=== PATIENT | female | born 1960 ===

== ENCOUNTER 2018-10-20 11:17 | Day surgery (SDC) | payer OTHER ==
[2018-10-20] MEDS ORDERED: acetaZOLAMIDE TAB* 250 MG ONE (11:59)
[2018-10-20] MEDS ORDERED: Cyclopentolate 1% OPTH.SOL* 2 ML BTL ONE (11:59)
[2018-10-20] MEDS ORDERED: Povidone Iodine 5% OPTH* 30 ML BTL ONE (12:00)
[2018-10-20] MEDS ORDERED: Tropicamide 1% OPTH.SOL* BTL ONE (12:00)
[2018-10-20] MEDS ORDERED: Phenylephrine OPHTH SOL 2.5%* 2 ML ONE (12:00)
[2018-10-20] MEDS ORDERED: Tetracaine 0.5% OPTH.SOL 4 ML* 1 DROP BTL ONE (12:00)
[2018-10-20] MEDS ORDERED: Lidocaine 1%* 5 ML VIAL ONE (12:00)
[2018-10-20] MEDS ORDERED: Neomycin/Polymy/Dex OPHTH.OIN* 3.5 GM ONE (12:00)
[2018-10-20] MEDS ORDERED: Ketorolac 0.5% OPHTH (NF) 0.5 % 5 ML BTL ONE (12:00)
[2018-10-20] MEDS ORDERED: Midazolam* 1 MG/ML 2 ML VIAL (2 MG) ONE ×2 (13:45→13:48)
[2018-10-20 14:21] VITALS: BP 141/62
--- NOTE | 2018-10-21 02:36 | OP ---
\DATE OF OPERATION: 10/20/18 - OR [facility] DATE OF : 62 SURGEON: Jorge Sandy MD. ANESTHESIA: Monitored anesthesia care. PREOPERATIVE DIAGNOSIS: Cataract, left eye. POSTOPERATIVE DIAGNOSIS: Cataract, left eye. OPERATIVE PROCEDURE: Extracapsular cataract extraction of the left eye with intraocular lens implant. ANESTHESIA: Monitored anesthesia care. IMPLANT: SN60WF 21.0 diopter lens to the left eye. COMPLICATIONS: None. DESCRIPTION OF PROCEDURE: The patient was given phenylephrine 2.5% and cyclopentolate 1% eye drops to the operative eye in the preoperative area. The patient was taken to the operating room, where a time-out was taken to identify the correct patient, site, and side of surgery. The patient's left eye was prepped and draped in the usual sterile fashion with 5% Betadine. A second time -out was taken to verify the correct patient, side, and site of surgery, as well as the correct lens implant. A lid speculum was placed to the left eye. A 1 mm paracentesis blade was used to make a clear corneal incision. Preservative -free 1% lidocaine was injected into the anterior chamber. DisCoVisc was then injected into the anterior chamber. A 2.75 mm keratome blade was used to make a triplanar incision. A cystotome initiated a capsulorrhexis, which was completed with Utrata forceps in a continuous and curvilinear manner. Hydrodissection of the lens was performed with BSS on a cannula. The lens could be spun in a capsular bag. The phacoemulsification handpiece was used with a [id number] technique to remove the nucleus. The I/A handpiece then removed the residual cortical lens material. DisCoVisc was injected to inflate the capsular bag. The planned SN60WF 21.0 Diopter lens was injected into the capsular bag. The residual DisCoVisc was removed from the eye with the I/A handpiece. The corneal incisions were hydrated and no leaks occurred at physiologic pressure around 20 mmHg per palpation. The lid speculum was removed and drapes were removed. Maxitrol ointment was placed to the surface of the operative eye. An adhesive patch and shield was then placed on the operative eye. The patient was taken to the postoperative area in stable condition. [id number]/[facility] #: [id number] JOHN
== END 2018-10-20 14:31 | disposition home or self-care (01) ==
LOC: OREAST 11:17
PROVIDERS: ATTEND Student in an Organized Health Care Education/Training Program
DX: H25.12 Age-related nuclear cataract, left eye (principal); H25.013 Cortical age-related cataract, bilateral; H02.401 Unspecified ptosis of right eyelid; E78.1 Pure hyperglyceridemia; E88.9 Metabolic disorder, unspecified; R01.1 Cardiac murmur, unspecified; I10 Essential (primary) hypertension; G47.33 Obstructive sleep apnea (adult) (pediatric); E78.5 Hyperlipidemia, unspecified; Z91.040 Latex allergy status; Z88.1 Allergy status to other antibiotic agents; Z96.1 Presence of intraocular lens
CPT/HCPCS: A9270-GY; J2250; V2632

== ENCOUNTER 2019-01-12 07:44 | Observation (INO) | payer OTHER ==
[2019-01-12 08:07] LABS: ABS Eosinophils 0.1 10^3/ul (0-0.6); ABS Lymphocytes 2.6 10^3/ul (1.0-4.8); ABS Monocytes 0.5 10^3/ul (0-0.8); ABS Neutrophils 3.6 10^3/ul (1.5-7.7); Eosinophil % 1.5 %; Hematocrit 39 % (35-47); Hemoglobin 13.7 g/dL (12.0-16.0); Lymphocyte % 38.5 %; Mean Corpuscular HGB Conc 35 g/dL (31-36); Mean Corpuscular Hemoglobin 30 pg (27-31); Mean Corpuscular Volume 86 fL (80-97); Mean Platelet Volume 8.7 fL (7.4-10.4); Platelet Count 283 10^3/uL (150-450); Red Blood Count 4.59 10^6 /uL (3.70-4.87); Red Cell Distribution Width 13 % (10-15); White Blood Count 6.9 10^3/uL (3.5-10.8)
[2019-01-12 08:24] LABS: Albumin 4.4 g/dL (3.2-5.2); Albumin/Globulin Ratio 1.5 (1-3); BUN/Creatinine Ratio 21.8 (8-20); Calcium 9.6 mg/dL (8.6-10.3); EGFR African American 137.9 (>60); EGFR Non-African American 113.9 (>60); Globulin 2.9 g/dL (2-4); Total Bilirubin 0.3 mg/dL (0.2-1.0); Total Protein 7.3 g/dL (6.4-8.9)
[2019-01-12] MEDS ORDERED: Aspirin 81 mg CHEW TAB* 81 MG TAB.CHEW PO ONE (08:33)
--- NOTE | 2019-01-12 08:36 | ED ---
Complex/Multi-Sys Presentation - HPI Summary HPI Summary: This patient is a 58 year old F presenting to [facility] accompanied by with a chief complaint of intermittent jaw pain and burning chest pain since 0630 on 01/12/19. Patient reports frequent burping, nausea when jaw pain is severe. Pt denies any fever, chills, erythema of eyes, sore throat, SOB, cough, abdominal pain, vomiting, dysuria, hematuria, myalgia, edema, rash, dizziness, pain or swelling in legs, back pain, tingling numbness down arms, issues with exertion. Per triage, the patient rates the pain 4/10 in severity. Pt has a family history of heart issues. Pt takes Lisinopril, Gemfibrozil and Metformin. Pt did not take aspirin today. Home Medications Medication Instructions Recorded Confirmed Type Aspirin [Aspir-81] 81 mg PO EVERY OTHER DAY 08/01/12 01/12/19 History Melatonin 3 mg PO BEDTIME 08/01/12 01/12/19 History Calcium Carbonate/Vitamin D3 1 tab PO QPM 10/01/18 01/12/19 History [Calcium 600 + Vit D Tablet] Gemfibrozil 600 mg pe PO QPM 10/01/18 01/12/19 History Lisinopril 5 mg PO QPM 10/01/18 01/12/19 History Metformin HCl [Metformin HCl ER] 2,000 mg PO QPM 10/01/18 01/12/19 History Onley-3S/Dha/Epa/Fish Oil [Fish 1 tab PO BEDTIME 10/01/18 01/12/19 History Oil 1,200 mg Softgel] - History Of Current Complaint Chief Complaint: EDChestPainROMI Time Seen by Provider: 01/12/19 08:01 Hx Obtained From: Patient Onset/Duration: Lasting Hours, Resolved Timing: Intermittent, Lasting:, Hours Severity Currently: None Severity Initially: Moderate Location: Pain At: - jaw Associated Signs And Symptoms: Positive: Chest Pain, Nausea, Other - pos - jaw pain, burping; neg - chills, erythema of eyes, sore throat, hematuria, myalgia, rash, dizziness, back pain, tingling/numbness down arms, issues with exertion. Negative: SOB, Cough, Edema, Vomiting, Abdominal Pain, Dysuria, Fever - Allergies/Home Medications Allergies/Adverse Reactions: Allergies Allergy/AdvReac Type Severity Reaction Status Date / Time latex Allergy Severe Cellulitis Verified 01/12/19 08:05 michelle Allergy Severe Blisters Verified 01/12/19 08:05 shellfish derived Allergy Severe Difficulty Verified 01/12/19 08:05 Breathing/Wheezing bacitracin Allergy Intermediate cellulitis Verified 01/12/19 08:05 [From Triple Antibiotic] neomycin Allergy Intermediate cellulitis Verified 01/12/19 08:05 [From Triple Antibiotic] polymyxin B Allergy Intermediate cellulitis Verified 01/12/19 08:05 [From Triple Antibiotic] PMH/Surg Hx/FS Hx/Imm Hx Endocrine/Hematology History: Reports: Hx Diabetes - on metformin-metabolic syndrome Cardiovascular History: Reports: Hx Hypercholesterolemia, Hx Hypertension - on lisinopril Denies: Other Cardiovascular Problems/Disorders Respiratory History: Reports: Hx Sleep Apnea Denies: Other Respiratory Problems/Disorders GI History: Reports: Hx Irritable Bowel - 25 years ago, and then again 08/19 Denies: Other GI Disorders History: Reports: Other Problems/Disorders - UTI when 27 years ago Sensory History: Reports: Hx Cataracts - Bilateral, Hx Contacts or Glasses - one contact in right eye-hasn't worn in 2 weeks Denies: Hx Glaucoma, Hx Hearing Aid Opthamlomology History: Reports: Hx Cataracts - Bilateral, Hx Contacts or Glasses - one contact in right eye-hasn't worn in 2 weeks Denies: Hx Glaucoma Neurological History: Reports: Hx Migraine - visual migraines-without headache Denies: Other Neuro Impairments/Disorders - Surgical History Surgery Procedure, Year, and Place: Appendectomy 1975 Hx Anesthesia Reactions: No Infectious Disease History: No Infectious Disease History: Denies: Traveled Outside the [place] in Last 30 Days - Family History Known Family History: Positive: Other - pos - heart issues - Social History Lives: With Family Alcohol Use: None Hx Substance Use: No Substance Use Type: Reports: None Hx Tobacco Use: No Smoking Status (MU): Never Smoked Tobacco Review of Systems Negative: Fever, Chills Negative: Erythema Negative: Sore Throat Positive: Chest Pain Negative: Shortness Of Breath, Cough Positive: Nausea. Negative: Abdominal Pain, Vomiting Negative: dysuria, hematuria Positive: Other - pos - jaw pain. Negative: Myalgia Negative: Rash All Other Systems Reviewed And Are Negative: Yes Physical Exam - Summary Physical Exam Summary: Constitutional: Well-developed, Well-nourished, Alert. (-) Distressed Skin: Warm, Dry HENT: Normocephalic; Atraumatic Eyes: Conjunctiva normal Neck: Musculoskeletal ROM normal neck. (-) JVD, (-) Stridor, (-) Tracheal deviation Cardio: Rhythm regular, rate normal, Heart sounds normal; Intact distal pulses; The pedal pulses are 2+ and symmetric. Radial pulses are 2+ and symmetric. (-) Murmur Pulmonary/Chest wall: Effort normal. (-) Respiratory distress, (-) Wheezes, (-) Rales Abd: Soft, (-) tenderness, (-) Distension, (-) Guarding, (-) Rebound Musculoskeletal: (-) Edema Lymph: (-) Cervical adenopathy Neuro: Alert, Oriented x3 Psych: Mood and affect Normal Triage Information Reviewed: Yes Vital Signs On Initial Exam: Initial Vitals Temp Pulse Resp BP Pulse Ox 96.8 F 64 18 180/80 100 01/12/19 07:45 01/12/19 07:45 01/12/19 07:45 01/12/19 07:45 01/12/19 07:45 Vital Signs Reviewed: Yes Diagnostics - Vital Signs Vital Signs Temp Pulse Resp BP Pulse Ox 01/12/19 07:56 63 18 176/82 100 01/12/19 07:45 96.8 F 64 18 180/80 100 - Laboratory Lab Results: Lab Results 01/12/19 01/12/19 Range/Units 07:59 07:59 WBC 6.9 (3.5-10.8) 10^3/uL RBC 4.59 (3.70-4.87) 10^6 /uL Hgb 13.7 (12.0-16.0) g/dL Hct 39 (35-47) % MCV 86 (80-97) fL MCH 30 (27-31) pg MCHC 35 (31-36) g/dL RDW 13 (10-15) % Plt Count 283 (150-450) 10^3/uL MPV 8.7 (7.4-10.4) fL Neut % (Auto) 52.5 % Lymph % (Auto) 38.5 % [place] % (Auto) 6.9 % Eos % (Auto) 1.5 % Baso % (Auto) 0.6 % Absolute Neuts (auto) 3.6 (1.5-7.7) 10^3/ul Absolute Lymphs (auto) 2.6 (1.0-4.8) 10^3/ul Absolute Monos (auto) 0.5 (0-0.8) 10^3/ul Absolute Eos (auto) 0.1 (0-0.6) 10^3/ul Absolute Basos (auto) 0.0 (0-0.2) 10^3/ul Absolute Nucleated RBC 0.0 10^3/ul Nucleated RBC % 0.0 Sodium 134 L (135-145) mmol/L Potassium 4.0 (3.5-5.0) mmol/L Chloride 99 L (101-111) mmol/L Carbon Dioxide 27 (22-32) mmol/L Anion Gap 8 (2-11) mmol/L BUN 12 (6-24) mg/dL Creatinine 0.55 (0.51-0.95) mg/dL Est GFR ( Amer) 137.9 (>60) Est GFR (Non-Af Amer) 113.9 (>60) BUN/Creatinine Ratio 21.8 H (8-20) Glucose 127 H (70-100) mg/dL Calcium 9.6 (8.6-10.3) mg/dL Total Bilirubin 0.30 (0.2-1.0) mg/dL AST 28 (13-39) U/L ALT 26 (7-52) U/L Alkaline Phosphatase 58 (34-104) U/L Troponin I 0.00 (<0.04) ng/mL Total Protein 7.3 (6.4-8.9) g/dL Albumin 4.4 (3.2-5.2) g/dL Globulin 2.9 (2-4) g/dL Albumin/Globulin Ratio 1.5 (1-3) Result Diagrams: 01/12/19 07:59 01/12/19 07:59 Lab Statement: Any lab studies that have been ordered have been reviewed, and results considered in the medical decision making process. - EKG 0746 Cardiac Rate: NL - 70 bpm EKG Rhythm: Sinus Rhythm Summary of EKG Findings: An EKG at 0746 reveals sinus rhythm 70 bpm, no STEMI, RR 857. Re-Evaluation - Re-Evaluation First Eval Re-Evaluation Time: 09:42 Comment: Discussed plan to admit with pt. Pt is agreeable. Complex Multi-Symp Course/Dx Course Of Treatment: This patient is a 58 year old F presenting to [facility] accompanied by with a chief complaint of intermittent jaw pain and burning chest pain since 06 on 01/12/19. Patient reports frequent burping, nausea when jaw pain is severe. Pt has a family history of heart issues. Normal physical exam. Blood work was obtained. Sodium is 134, chloride is 99, BUN/Creatinine Ratio is 21.8, glucose is 127. Troponin I is 0.00. An EKG reveals sinus rhythm 70 bpm, no STEMI, RR 857. In the ED course the patient was given aspirin 324 mg PO. Pt had multiple cardiac risk factors including chest pain and radiation into the jaw, concerning for angina. Pt will require further work up and possible stress test. We discussed patient care with Dr. Morrison and she accepted pt for admission. Patient will be admitted. The patient is agreeable with this plan. - Diagnoses Provider Diagnoses: Chest pain, unspecified - Physician Notifications Discussed Care Of Patient With: Richelle Morrison Time Discussed With Above Provider: 09:36 Instructed by Provider To: Other - Discussed pt case with Dr. Morrison, who accepts pt for admission. Discharge - Sign-Out/Discharge Documenting (check all that apply): Patient Departure - Admit All imaging exams completed and their final reports reviewed: Yes Patient Received Moderate/Deep Sedation with Procedure: No - Discharge Plan Condition: Good Disposition: ADMITTED TO [facility] - Attestation Statements Document Initiated by Scribe: Yes Documenting Scribe: Sophie Rasheed Provider For Whom Doriee is Documenting (Include Credential): Dr. Scott Verdin MD Scribe Attestation: Sophie Nowak, scribed for Dr. Scott Verdin MD on 01/12/19 at 1318. Status of Scribe Document: Ready
[2019-01-12 08:39] LABS: INR 0.94 (0.82-1.09)
[2019-01-12] MEDS ORDERED: metFORMIN* 1,000 MG TAB PO SCH (10:00)
[2019-01-12 10:05] LABS: HDL Cholesterol 37.5 mg/dL
--- NOTE | 2019-01-12 11:28 | HP ---
CC: Dr. Banuelos * HISTORY AND PHYSICAL: DATE OF ADMISSION: 01/12/19 PRIMARY CARE PROVIDER: Dr. Banuelos. CHIEF COMPLAINT: Sudden onset of heartburn and jaw pain. HISTORY OF PRESENT ILLNESS: Ms. Alex Yang is a 58-year-old female with a history of obesity, hypertension, hypertriglyceridemia, and prediabetes ( metabolic syndrome) who presents to the emergency room with complaints of the sudden onset of heartburn and jaw pain. The patient states that overnight she felt as if maybe she was clenching her jaw. She did not have any other associated symptoms through the night. When she woke up on the morning of admission, she had severe heartburn and jaw discomfort. The jaw discomfort kind of moved around. She had no associated shortness of breath. She did have some intermittent nausea, however. She was getting ready to go to a birthday breakfast for a friend when she was noticing this. She was getting dressed and she felt as if her bra was tight or squeezing. She changed her bra and states that that temporarily improved; however, despite the change in bra she continued to have that tight sensation around her chest. This has now resolved , as has the heartburn and the jaw discomfort. The patient did not have anything to eat or drink prior to the onset of these discomforts. She did attempt drinking some ice water, which again very briefly relieved the discomfort, but then came back. She has never had anything like this in the past. She has no history of coronary artery disease. PAST MEDICAL HISTORY: 1. Hypertension. 2. Hypertriglyceridemia. 3. Prediabetes. 4. Metabolic syndrome. PAST SURGICAL HISTORY: 1. Bilateral cataract extractions. 2. Appendectomy. ALLERGIES: LATEX, GIGI, SHELLFISH, BACITRACIN, NEOMYCIN, and POLYMYXIN B. FAMILY HISTORY: Mom at the age of 74 of coronary artery disease. The patient believes that her mom had bypass surgery at the age of 63. Her maternal grandfather had an ID at the age of 53. Her father had a history of hypertension and she believes from ventricular fibrillation, possibly related to an ID. SOCIAL HISTORY: The patient is a lifelong nonsmoker. She does not drink alcohol. 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 She is . She has 2 children. Her , Hoang, is her healthcare proxy. REVIEW OF SYSTEMS: A complete 11-system review of systems was obtained. Pertinent positives and negatives are as per HPI and, otherwise, negative. PHYSICAL EXAMINATION GENERAL: The patient is a well-developed, obese, middle-aged female seen sitting up on the stretcher, in no acute distress. VITAL SIGNS: Blood pressure 141/72, pulse 63, respirations 17, temp 96.8, and O2 sat 97% on room air. HEENT: Pupils are equal and round. There is evidence of prior cataract extraction. Extraocular muscles are intact. Oropharynx is clear. Oral mucosa is moist. There is no submandibular, cervical or supraclavicular adenopathy. Thyroid is not enlarged. No thyroid nodules are noted. PULMONARY: Lungs are clear to auscultation bilaterally. CARDIAC: Normal S1 and S2. Regular rate and rhythm. I do not appreciate any murmurs. There is no lower extremity edema. Pulses are 2+ at the dorsalis pedis. ABDOMEN: Bowel sounds are present. Abdomen is soft, nontender, and nondistended. MUSCULOSKELETAL: There is no cyanosis or clubbing of the digits. There is full active range of motion of all 4 extremities. SKIN: Warm and dry. There are no rashes. NEUROLOGIC: Cranial nerves II through XII are grossly intact. Sensation is intact to light touch throughout. Strength is 5/5 and symmetrical to both upper and lower extremities bilaterally. PSYCH: The patient is alert. She is oriented x3. Affect appears appropriate. DIAGNOSTIC STUDIES/LAB DATA: WBC 6.9, hemoglobin 13.7, hematocrit 39, and platelets 283. INR 0.94. Sodium 134, potassium 4.0, chloride 99, CO2 of 27, BUN 12, creatinine 0.55, glucose 127, calcium 9.6. Bilirubin 0.3, AST 28, ALT 26, alk phos 58. Troponin 0. Albumin 4.4. EKG revealed normal sinus rhythm without any acute ST-T wave abnormalities. ASSESSMENT AND PLAN: Ms. Alex Yang is a 58-year-old female with a history of metabolic syndrome who presents to the emergency room with complaints of the sudden onset of severe heartburn and jaw pain and is being admitted to rule out myocardial infarction. 1. Severe heartburn and jaw pain. At this point, the patient's symptoms have subsided. The patient's SAVANNA score is 2. Her initial troponin is negative. She will have 2 more troponins obtained. Tomorrow, we will plan on an exercise nuclear stress test. If the patient's troponins become positive, cardiology consultation will be requested. I have added on a lipid profile to the labs obtained in the emergency room as the patient remains n.p.o. at this point. She had a hemoglobin A1c obtained on 10/05/18, which was mildly elevated at 6.3% . She will continue on aspirin 81 mg p.o. every other day and lisinopril 5 mg p.o. at bedtime. 2. Hypertension. BP in the emergency room has fluctuated a fair amount. Most recent values are under fair control. We will continue lisinopril 5 mg daily. 3. Hypertriglyceridemia. Continue gemfibrozil. I am going to hold her fish oil capsules. 4. Prediabetes. The patient will continue on metformin. She typically takes 2000 mg p.o. at bedtime, the extended release formulation. Pharmacy will auto substitute the appropriate dose of the short acting metformin. 5. DVT prophylaxis. According to the Adult Thrombosis Prophylaxis Risk Factor Assessment Guide, the patient has a total risk factor score of 2, making her moderate risk. She will be placed on heparin 5000 units subcutaneous q.12 hours as DVT prophylaxis. 6. Code status is full. TIME SPENT: Sixty-five minutes were spent admitting this patient. [id number]/[facility] #: [id number] JOHN
[2019-01-12] MEDS: metFORMIN* 1,000 MG TAB PO SCH ×2 (12:18→20:22)
[2019-01-12] MEDS ORDERED: Lisinopril TAB* 5 MG PO SCH (18:00)
[2019-01-12] MEDS ORDERED: Gemfibrozil TAB* 600 MG PO SCH (18:00)
[2019-01-12] MEDS: Heparin VIAL(*) 5000 UNITS/ML VIAL (FIVE THOUSAND) SUBCUT SCH (20:22)
[2019-01-12] MEDS ORDERED: Melatonin 3 MG TAB PO SCH (21:00)
[2019-01-13 08:49] VITALS: BP 114/56
[2019-01-13] MEDS: metFORMIN* 1,000 MG TAB PO SCH (10:29)
[2019-01-13] MEDS: Heparin VIAL(*) 5000 UNITS/ML VIAL (FIVE THOUSAND) SUBCUT SCH (10:30)
--- NOTE | 2019-01-13 20:52 | DS ---
CC: Dr. Margi Banuelos * DISCHARGE SUMMARY: DATE OF ADMISSION: 01/12/19 DATE OF DISCHARGE: 01/13/19 ATTENDING PHYSICIAN WHILE IN THE HOSPITAL: Dr. Brown Gonzalez * (dictated by FREDDY Andres). PRIMARY CARE PROVIDER: Dr. Margi Banuelos. PRIMARY DIAGNOSIS: Chest and jaw pain, noncardiac. SECONDARY DIAGNOSES: 1. Hypertension. 2. Hypertriglyceridemia. 3. Prediabetes. 4. Metabolic syndrome. STUDIES WHILE IN THE HOSPITAL: Exercise stress test found to be negative on . HISTORY OF PRESENT ILLNESS/HOSPITAL COURSE: Asmita Yang is a 58-year- old white female with past medical history significant for metabolic syndrome, hypertension, hypertriglyceridemia and prediabetes, who presented to the emergency department complaining of epigastric pain and jaw pain. The patient was found to have negative troponins x3 measurements and her EKG was without ischemic changes. She was admitted overnight for stress testing in the morning. Her stress test was negative on the cardiac portion, and the nuclear portion was found to be low risk. During her hospital stay, she was found to have an elevated LDL to 135. Her ASCVD risk was calculated to be 5.1%. The patient had resolution of symptoms by the time of her arrival to the hospital. On date of discharge, she is no longer symptomatic. The patient described that she had no history of anxiety and no emotional stress and now it seems likely that her cause of her epigastric pain which would refer to her jaw was most likely reflux related and less likely to be more of a panic related given that she does not have risk factors for this. On date of discharge, the patient feels well. Denies chest pain, jaw pain, neck pain, difficulty breathing, fever, chills, headache, or change in vision. PHYSICAL EXAM: Overweight white female, sitting in hospital chair, appearing comfortable, in no acute distress. Eyes: PERRL. Sclerae anicteric. ENT: Mucous membranes moist. Neck: Supple without JVD. Cardio: Regular rate and rhythm without murmurs, rubs or gallops. Lungs: Clear to auscultation throughout. Abdomen: Soft, nontender, nondistended. Neuro: Alert and oriented x3 without focal deficits. Skin: Skin is warm, dry, and intact. DISCHARGE PLAN: DIET: Regular unrestricted diet. ACTIVITY: The patient may return to normal activity as tolerated. The patient was advised to follow up with her primary care provider within 7 to 10 days regarding this hospitalization. At this time, it is recommended to discuss starting the patient on a statin given that the combination of gemfibrozil and statins is considered not contraindicated. Further medication changes may be necessary to further control her hypertriglyceridemia if statin alone does not, given her ASCVD risk as would be indicated. The patient was advised to return to the emergency department if she does have severe chest pain that does not improve with the newly prescribed Pepcid or if it refers to the neck or jaw or if she ever has shortness of breath, loss of consciousness. Of note, the patient reports that she takes 81 mg of baby aspirin every other day. It is recommended at the time of followup to further discuss primary prevention. Aspirin should be taken every day with the patients who were seeking primary prevention if they have prediabetes. DISCHARGE MEDICATIONS: Continued home medications: 1. Famotidine 20 mg p.o. b.i.d. p.r.n. dyspepsia. 2. Aspirin 81 mg p.o. every other day. 3. Calcium with vitamin D supplement 1 tab p.o. daily. 4. Gemfibrozil 600 mg p.o. daily. 5. Lisinopril 5 mg p.o. daily. 6. Melatonin 3 mg p.o. daily. 7. Metformin 2000 mg p.o. daily. 8. Fish oil 1 tab p.o. daily. CONDITION ON DISCHARGE: Stable. DISPOSITION: Home. TIME SPENT: Approximately 35 minutes were spent on this discharge; approximately half of this time was spent at the bedside. FREDDY ANDRES [id number]/[facility] #: [id number] JOHN
[2019-01-14] MEDS ORDERED: Aspirin EC TAB* 81 MG TAB.EC PO SCH (09:00)
== END 2019-01-13 12:09 | disposition home or self-care (01) ==
LOC: ED 07:44 → MEDTELE 10:51
PROVIDERS: ADMIT Hospitalist; ATTEND Internal Medicine
DX: R07.9 Chest pain, unspecified (principal); R68.84 Jaw pain; I10 Essential (primary) hypertension; E78.1 Pure hyperglyceridemia; R73.03 Prediabetes; E88.81 Metabolic syndrome and other insulin resistance; Z79.82 Long term (current) use of aspirin; Z79.899 Other long term (current) drug therapy; E78.00 Pure hypercholesterolemia, unspecified; R11.0 Nausea
CPT/HCPCS: 36415; 78452; 80053; 80061; 83721; 84484; 85025; 85610; 93005; 93017; 96372; 99283; A9270-GY; A9502; G0378; J1644